=== PATIENT | female | born 1960 | race Caucasian/White ===

== ENCOUNTER → 2016-12-18 | Day surgery (SDC) | payer BC ==
[~2016-12-18] MED LIST: Lactated Ringers 1,000 ML IV SCH; Propofol 200 MG/20 ML SDV IV ONE
[2016-12-18 11:06] VITALS: BP 131/61
--- NOTE | 2016-12-22 07:58 | OR ---
DATE OF OPERATION: 12/18/2016 PREOPERATIVE DIAGNOSIS: FAMILY HISTORY OF COLON CANCER. POSTOPERATIVE DIAGNOSIS: FAMILY HISTORY OF COLON CANCER. SURGEON: Waylon Nicholson MD PROCEDURE: FULL-LENGTH COLONOSCOPY. ANESTHESIA: CHANNEL TURNER due to irritable bowel syndrome. COMPLICATIONS: None. SPECIMEN: None. FINDINGS: Normal full-length colonoscopy. RECOMMENDATIONS: Followup colonoscopy every 5 years. INDICATIONS: The patient has a family history of colon cancer. She has also been having some altered bowel habits. Roslyn Palomino sent her for a 5-year scope. DESCRIPTION OF PROCEDURE: The patient was prepped and draped, placed in the left lateral decubitus position. A lubricated Olympus colonoscope was inserted and easily advanced to the cecum. Direct visualization of the ileocecal valve and appendiceal orifice was accomplished. Bowel prep was excellent. Upon withdrawal of the scope, throughout the entire length of the colon, I found no signs of any polyps, mass, ulceration, or bleeding sites. No vascular abnormalities or signs of colitis. There were no diverticula. The rectal vault was unremarkable. Retroflexion showed some perianal skin tags. Air was then suctioned. Scope was removed without complication. IZZY/SATYA /[id number]
== END ==
LOC: CC.SDS 09:14
PROVIDERS: ATTEND Family Medicine
DX: Z12.11 Encounter for screening for malignant neoplasm of colon (principal); Z80.0 Family history of malignant neoplasm of digestive organs; I10 Essential (primary) hypertension; E78.00 Pure hypercholesterolemia, unspecified; E78.5 Hyperlipidemia, unspecified; Z79.899 Other long term (current) drug therapy; Z90.49 Acquired absence of other specified parts of digestive tract; Z98.890 Other specified postprocedural states; Z72.0 Tobacco use
CPT/HCPCS: 45378; J2704; J7120

== ENCOUNTER → 2022-04-24 | Day surgery (SDC) | payer BC ==
[~2022-04-24] MED LIST changes: +Ketamine 200 MG/20 ML MDV ONE; +Ondansetron 4 MG/2 ML SDV ONE; -Propofol 200 MG/20 ML SDV IV ONE; +Propofol 200 MG/20 ML SDV ONE; +fentaNYL 50 MCG/ML SDV ONE
[2022-04-24 10:05] VITALS: BP 125/65; PULSE 71
== END ==
LOC: CC.SDS 08:01
PROVIDERS: ATTEND Family Medicine
DX: Z12.11 Encounter for screening for malignant neoplasm of colon (principal); I10 Essential (primary) hypertension; E78.5 Hyperlipidemia, unspecified; G43.909 Migraine, unspecified, not intractable, without status migrainosus; K57.30 Diverticulosis of large intestine without perforation or abscess without bleeding; M19.90 Unspecified osteoarthritis, unspecified site; K58.9 Irritable bowel syndrome, unspecified; M85.80 Other specified disorders of bone density and structure, unspecified site; Z80.0 Family history of malignant neoplasm of digestive organs; Z79.899 Other long term (current) drug therapy; Z90.49 Acquired absence of other specified parts of digestive tract; Z98.890 Other specified postprocedural states
CPT/HCPCS: J2405; J2704; J3010; J7120

== ENCOUNTER 2023-01-21 14:47 | Observation (INO) | payer BC ==
[2023-01-21] MEDS ORDERED: Ondansetron 4 MG/2 ML SDV IVPUSH PRN (15:08)
[2023-01-21] MEDS ORDERED: HYDROmorphone 0.5 MG/0.5 ML Syringe IVPUSH ONE ×4 (15:09→19:30)
[2023-01-21 15:30] LABS: BASOPHILS ABSOLUTE AUTO 0.03 10^3/uL (0.00-0.50); BASOPHILS PERCENT AUTO 0.3 % (0-1); EOSINOPHILS ABSOLUTE AUTO 0.23 10^3/uL (0.00-1.50); HEMATOCRIT 34.4 % (37.0-47.0); HEMOGLOBIN 11.7 g/dL (12.0-16.0); IMMATURE GRAN ABSOLUTE AUTO 0.02 10^3/uL (0.00-0.49); IMMATURE GRAN PERCENT AUTO 0.2 % (0.0-4.9); LYMPHOCYTES PERCENT AUTO 7.9 % (24-44); MEAN CORPUSCULAR HEMOGLOBIN 29.3 pg (27.0-32.0); MONOCYTES ABSOLUTE AUTO 0.89 10^3/uL (0.00-1.50); MONOCYTES PERCENT AUTO 7.8 % (0-10); NEUTROPHILS ABSOLUTE AUTO 9.36 x10^3/uL (1.80-8.00); NEUTROPHILS PERCENT AUTO 81.8 % (41-71); PLATELET COUNT,PLT 263 10^3/uL (150-400); WHITE BLOOD CELL COUNT,WBC 11.4 10^3/uL (4.0-11.0)
[2023-01-21 15:38] LABS: APPEARANCE,URINE SLIGHTLY CLOUDY (CLEAR); BILIRUBIN,URINE NEGATIVE (NEGATIVE); COLOR,URINE YELLOW (YELLOW); GLUCOSE,URINE NEGATIVE (NEGATIVE); KETONES,URINE NEGATIVE (NEGATIVE); LEUKOCYTE ESTERASE,URINE SMALL (NEGATIVE); NITRITE,URINE NEGATIVE (NEGATIVE); OCCULT BLOOD,URINE MODERATE (NEGATIVE); PH,URINE 6.5 (4.5-8.0); PROTEIN,URINE 100 mg/dL (NEGATIVE); UROBILINOGEN,URINE 0.2 EU/dL (0.2-1.0)
[2023-01-21 15:44] LABS: ALANINE AMINOTRANSFERASE,ALT 23 U/L (12-78); ALBUMIN 3.3 g/dL (3.4-5.0); ALKALINE PHOSPHATASE 59 U/L (46-116); ASPARTATE AMNIOTRANSFERASE,AST 18 U/L (15-37); BILIRUBIN TOTAL 0.3 mg/dL (0.0-1.0); BLOOD UREA NITROGEN,BUN 19 mg/dL (7-18); C-REACTIVE PROTEIN 8.23 mg/dL (<=0.30); CALCIUM 8.9 mg/dL (8.4-10.1); CARBON DIOXIDE,CO2 23 mmol/L (21-32); CHLORIDE,CL 99 mEq/L (98-106); CREATININE 1.1 mg/dL (0.6-1.0); ESTIMATED GFR 58 mL/min (>=60); GLUCOSE RANDOM 126 mg/dL (75-99); POTASSIUM,K 3.6 mEq/L (3.5-5.0); SODIUM,NA 134 mEq/L (136-145)
[2023-01-21 15:52] LABS: BACTERIA,URINE FEW /HPF (NOT SEEN); SQUAMOUS EPITHELIAL CELLS,UR FEW /HPF (NOT SEEN); WBC,URINE >100 /HPF (0-5)
[2023-01-21] MEDS ORDERED: Iopamidol 755 Mg/ML 100 ML Bottle IVPUSH ONE (18:22)
[2023-01-21] MEDS ORDERED: Ondansetron 4 MG/2 ML SDV IVPUSH STA (18:42)
[2023-01-21] MEDS ORDERED: HYDROmorphone 1 MG/ML Syringe IVPUSH PRN (21:34)
[2023-01-21] MEDS ORDERED: Ondansetron 4 MG/2 ML SDV IV PRN (21:34)
[2023-01-21] MEDS ORDERED: Naloxone 2 MG/2 ML Syringe IVPUSH PRN (21:34)
[2023-01-21] MEDS ORDERED: oxyCODONE 5 MG Tab PO PRN (21:34)
[2023-01-21] MEDS ORDERED: Ondansetron 4 MG Tab.DIS PO PRN (21:34)
[2023-01-21] MEDS ORDERED: cefTRIAXone 2 GM Vial IVPUSH SCH (22:00)
[2023-01-21] MEDS: Acetaminophen 325 MG Tab PO PRN (22:10)
[2023-01-21] MEDS: Sodium Chloride 0.9% 1,000 ML IV SCH (22:11)
[2023-01-22] MEDS: Ketorolac 30 MG/ML SDV IVPUSH PRN ×2 (00:19→08:15)
[2023-01-22 07:57] LABS: BASOPHILS ABSOLUTE AUTO 0.02 10^3/uL (0.00-0.50); BASOPHILS PERCENT AUTO 0.2 % (0-1); EOSINOPHILS ABSOLUTE AUTO 0.09 10^3/uL (0.00-1.50); HEMOGLOBIN 11.1 g/dL (12.0-16.0); IMMATURE GRAN ABSOLUTE AUTO 0.02 10^3/uL (0.00-0.49); IMMATURE GRAN PERCENT AUTO 0.2 % (0.0-4.9); LYMPHOCYTES ABSOLUTE AUTO 0.73 10^3/uL (0.60-5.00); MEAN CORPUSCULAR HEMOGLOBIN 29.6 pg (27.0-32.0); MEAN CORPUSCULAR HGB CONC 33.6 g/dL (32.0-36.0); MONOCYTES ABSOLUTE AUTO 0.77 10^3/uL (0.00-1.50); MONOCYTES PERCENT AUTO 8.4 % (0-10); NEUTROPHILS PERCENT AUTO 82.2 % (41-71); PLATELET COUNT,PLT 231 10^3/uL (150-400); RED BLOOD CELL COUNT 3.75 x10^6/uL (4.00-5.50); WHITE BLOOD CELL COUNT,WBC 9.1 10^3/uL (4.0-11.0)
[2023-01-22] MEDS ORDERED: Propranolol 10 MG Tab PO SCH (08:00)
[2023-01-22] MEDS ORDERED: Multivitamin Tab PO SCH (08:00)
[2023-01-22] MEDS ORDERED: Loratadine 10 MG Tab PO SCH (08:00)
[2023-01-22] MEDS ORDERED: COENZYME Q10 PO SCH (08:00)
[2023-01-22] MEDS ORDERED: HYOSCYAMINE SULFATE 0.375 MG PO SCH (08:00)
[2023-01-22] MEDS ORDERED: Fenofibrate 160 MG Tab PO SCH (08:00)
[2023-01-22] MEDS ORDERED: Cholecalciferol (Vitamin D3) 25 MCG Tab PO SCH (08:00)
[2023-01-22 08:13] LABS: ALBUMIN 2.8 g/dL (3.4-5.0); BILIRUBIN TOTAL 0.3 mg/dL (0.0-1.0); C-REACTIVE PROTEIN 14.12 mg/dL (<=0.30); CALCIUM 8.4 mg/dL (8.4-10.1); CREATININE 1.2 mg/dL (0.6-1.0); EST CRCL DRUG DOSING (CG) 43.05 mL/min; POTASSIUM,K 3.7 mEq/L (3.5-5.0); PROTEIN TOTAL,TP 6.5 g/dL (6.4-8.2)
[2023-01-22] MEDS: Acetaminophen 325 MG Tab PO PRN (09:55)
[2023-01-22] MEDS: Sodium Chloride 0.9% 1,000 ML IV SCH (10:57)
[2023-01-22 12:24] VITALS: BP 124/63; PULSE 95
== END 2023-01-22 13:42 ==
LOC: CC.ED 14:47 → CC.MS 20:05 → UNDOADMOB 20:05 → CC.ED 20:05 → CC.MS 22:23
PROVIDERS: ADMIT Nurse Practitioner Family; ATTEND Nurse Practitioner Family
DX: T83.192A Other mechanical complication of indwelling ureteral stent, initial encounter (principal); N20.0 Calculus of kidney; R11.2 Nausea with vomiting, unspecified; E78.00 Pure hypercholesterolemia, unspecified; I10 Essential (primary) hypertension; G43.909 Migraine, unspecified, not intractable, without status migrainosus; Z79.1 Long term (current) use of non-steroidal anti-inflammatories (NSAID); Z79.2 Long term (current) use of antibiotics; Z79.899 Other long term (current) drug therapy
CPT/HCPCS: 36415; 74177; 80053; 81001; 85025; 86140; 87086; A9270-GY; J0696; J1170; J1885; J2405; J7030; Q9967